=== PATIENT | female | born 1975 | race American Indian/Alaskan Native ===

== ENCOUNTER → 2018-01-05 | Outpatient (CLI) | payer OTHER ==
[~2018-01-05] MED LIST: ATOR20 PO; BUPR150T2; CEPH500 PO; CHLO25B PO; CRANBERRY TABL1 EACH PO; DULO60 PO; ESZOPICLONE; Elmiron100 MG PO; FLUO20; HYDACE5 PO; HYDR1TAB94 PO; Hair, Skin & N1 EACH PO; Kristalose20 GM PO; L-LYSINE500 MG PO; LEVSOD75 PO; LEVSOD88; Norco 5-325 Ta1 EACH PO; OXCA150 PO; OXYACE5T PO; POTCHL20ER PO; PROM25 PO; RXSULTRIDS; TRAZ50; Vitamin D2000 UNIT PO; WARF1 PO; WARF5 PO; WARF7.5 PO; Zofran8 MG PO
== END | disposition home or self-care (01) ==
LOC: LAB SHORT 14:51 → OLS 14:51
PROVIDERS: Nurse Practitioner Women's Health
DX: Z12.4 Encounter for screening for malignant neoplasm of cervix (principal); Z91.89 Other specified personal risk factors, not elsewhere classified
CPT/HCPCS: 87624; G0123

== ENCOUNTER 2020-09-04 12:20 | Emergency (ER) | payer OTHER ==
[~2020-09-04] VITALS: Ht 160 cm; Wt 63.5 kg
[~2020-09-04 12:20] MED LIST changes: +Percocet 5-3251 EACH PO; +Zofran Odt8 MG SL
[2020-09-04 13:08] LABS: BASOPHILS ABSOLUTE AUTO 0.02 K/mm3 (0.00-0.23); BASOPHILS PERCENT AUTO 1 % (0-2); EOSINOPHILS ABSOLUTE AUTO 0.01 K/mm3 (0.00-0.68); EOSINOPHILS PERCENT AUTO 0 % (0-6); Hematocrit 32.6 % (33.0-51.0); Hemoglobin 10.8 g/dL (11.5-16.0); IMMATURE GRAN ABSOLUTE AUTO 0.01 K/mm3 (0.00-0.10); IMMATURE GRAN PERCENT AUTO 0 % (0-1); LYMPHOCYTES ABSOLUTE AUTO 1.45 K/mm3 (0.84-5.20); LYMPHOCYTES PERCENT AUTO 36 % (21-46); MONOCYTES ABSOLUTE AUTO 0.36 K/mm3 (0.16-1.47); MONOCYTES PERCENT AUTO 9 % (4-13); Mean Corpuscular HGB Conc 33.1 g/dL (31.5-36.5); Mean Corpuscular Volume 94 fL (80-100); Mean Platelet Volume 8.9 fL (9.1-12.4); NEUTROPHILS ABSOLUTE AUTO 2.17 K/mm3 (1.96-9.15); NEUTROPHILS PERCENT AUTO 54 % (41-73); Platelet Count 167 K/mm3 (150-400); RDW Coefficient Variation 12.3 % (11.7-14.2); RDW Standard Deviation 42.6 fL (35.1-46.3); Red Blood Cell Count 3.48 M/mm3 (3.80-5.20); White Blood Cell Count 4.02 K/mm3 (4.00-11.30)
[2020-09-04 13:10] LABS: Alanine Aminotransfer (ALT/SGP 18 U/L (12-78); Albumin, Blood 3.2 g/dL (3.4-5.0); Albumin/Globulin Ratio 0.9 (0.8-1.8); Alk Phos 55 U/L (50-136); Anion Gap 8 mmol/L (6-16); Aspartate Aminotrans (AST/SGOT 15 U/L (12-37); Bilirubin, Total 0.5 mg/dL (0.1-1.0); Blood Urea Nitrogen 11 mg/dL (8-24); Bun/Creatinine Ratio 15.7 (12.0-20.0); CO2, Blood 21 mmol/L (21-32); Calcium, Blood 7.8 mg/dL (8.5-10.1); Chloride, Blood 114 mmol/L (98-108); Globulin, Blood 3.5 g/dL (2.2-4.0); Glomerular Filtration Rate >60 (60-); Glucose, Blood 73 mg/dL (70-99); Potassium, Blood 3.5 mmol/L (3.5-5.5); Sodium, Blood 143 mmol/L (136-145); Total Protein, Blood 6.7 g/dL (6.4-8.2)
== END 2020-09-04 15:28 | disposition home or self-care (01) ==
LOC: ER 12:20
PROVIDERS: Physician Assistant
DX: G43.909 Migraine, unspecified, not intractable, without status migrainosus (principal); Z88.2 Allergy status to sulfonamides; Z79.899 Other long term (current) drug therapy; Z87.442 Personal history of urinary calculi
CPT/HCPCS: 36415; 70450; 80053; 85025; 96374; 96375; 99285-25; J0780; J1100; J1170; J1200; J1885; J7030

== ENCOUNTER → 2024-07-14 | Outpatient (CLI) | payer OTHER ==
[2024-07-20 16:13] LABS: CALCIUM, URINE - PER 24H 130 mg/d (100-250); CALCIUM, URINE - PER VOLUME 11.8 mg/dL; CHLORIDE, URINE - PER 24H 134 mmol/d (140-250); CHLORIDE, URINE - PER VOLUME 122 mmol/L; CITRIC ACID, URINE - PER 24H 48 mg/d (320-1240); CITRIC ACID,URINE - PER VOLUME 44 mg/L; CREATININE, URINE - PER 24H 1199 mg/d (700-1600); CREATININE, URINE - PER VOLUME 109 mg/dL; HOURS COLLECTED 24 hr; MAGNESIUM, URINE - PER VOLUME 4.5 mg/dL; MAGNESIUM, URINE PER 24H 50 mg/d (12-199); OXALATE, URINE - PER 24H 26 mg/d (13-40); OXALATE, URINE - PER VOLUME 24 mg/L; PHOSPHORUS, URINE - PER 24H 792 mg/d (400-1300); PHOSPHORUS, URINE - PER VOLUME 72 mg/dL; POTASSIUM, URINE - PER 24H 38 mmol/d (25-125); POTASSIUM, URINE - PER VOLUME 35 mmol/L; SODIUM, URINE - PER 24H 150 mmol/d (51-286); SODIUM, URINE - PER VOLUME 136 mmol/L; SULFATE, URINE - PER 24H 9 mmol/d (6-30); SULFATE, URINE - PER VOLUME 8 mmol/L; TOTAL VOLUME 1100 mL; URIC ACID, URINE - PER 24H 546 mg/d (250-750); URIC ACID, URINE - PER VOLUME 49.6 mg/dL; URINE SUPERSATURATION INTERP Abnormal; URINE SUPERSATURATION, CAHPO4 3.47; URINE SUPERSATURATION, CAOX 7.51; URINE SUPERSATURATION, UA CALC 0.48
== END ==
LOC: LAB 11:30 → LAB SHORT 11:30 → LAB FUT 06-15 13:55
PROVIDERS: Urology
DX: N20.0 Calculus of kidney (principal)
CPT/HCPCS: 81003; 81050; 82131; 82140; 82340; 82436; 82507; 82570; 83735; 83935; 83945; 84105; 84133; 84300; 84392; 84560